=== PATIENT | female | born 1960 | race Caucasian/White ===

== ENCOUNTER 2019-09-08 06:14 | Day surgery (SDC) | payer OTHER ==
[~2019-09-08] VITALS: Ht 162.6 cm; Wt 81.0 kg
[~2019-09-08 06:14] MED LIST: CALCAVITD PO; Cipro500 MG PO; ERGO400; ERGO400 PO; Flagyl500 MG PO; HYDCHL12.5; METO10; Norco 5-325 Ta1 EACH PO; OMEP20ER PO; ONDA4ODT MM; SULTRIDS PO; XYZAL; Zofran Odt4 MG SL
[2019-09-08] MEDS ORDERED: Nexium40 MG PO (07:19)
[2019-09-08] MEDS ORDERED: FAMO20 PO (07:19)
[2019-09-08] MEDS ORDERED: PROBIOTIC1 EAC1 PO (07:20)
--- NOTE | 2019-09-08 08:09 | NUR ---
09/08/19 0809 Sung Artis A DEFICIT NOTED OF 145. DR SANDS AWARE.
== END 2019-09-08 09:00 | disposition home or self-care (01) ==
LOC: ORSCSDS 06:14
PROVIDERS: Obstetrics & Gynecology
PROC: 0UDB8ZX Extraction of Endometrium, Via Natural or Artificial Opening Endoscopic, Diagnostic (ICD-10-PCS; principal; 2019-09-08 07:30)
DX: N95.0 Postmenopausal bleeding (principal); N84.0 Polyp of corpus uteri; N93.9 Abnormal uterine and vaginal bleeding, unspecified
CPT/HCPCS: 88305; J1885; J2405; J2704; J3010; J7120

== ENCOUNTER → 2023-04-22 | Outpatient (CLI) | payer OTHER ==
[~2023-04-22] MED LIST changes: +FAMO20 PO; +Nexium40 MG PO; +OMEP20ER; +PROBIOTIC1 EAC1 PO
== END | disposition home or self-care (01) ==
LOC: LAB 12:58 → LAB SHORT 12:58
DX: R30.0 Dysuria (principal)
CPT/HCPCS: 87086